=== PATIENT | male | born 1950 | race Caucasian/White ===

== ENCOUNTER 2021-04-21 12:57 | Emergency (ER) | payer SELFPAY ==
[~2021-04-21] VITALS: Ht 180.3 cm; Wt 81.0 kg
[2021-04-21] MEDS ORDERED: TETANUS, DIPHTHERIA, PERTUSSIS VAC/PF 0.5ML (>7YR OLD) IM ONE (14:45)
[2021-04-21] MEDS ORDERED: IBUPROFEN 600MG TABLET PO ONE (14:45)
[2021-04-21 14:46] VITALS: BP 165/94
[2021-04-21] MEDS ORDERED: CIPR-263 MT (14:46)
[2021-04-21] MEDS ORDERED: ACET650T37 MT (14:46)
== END 2021-04-21 14:57 | disposition home or self-care (01) ==
LOC: ER 13:03
DX: S91.331A Puncture wound without foreign body, right foot, initial encounter (principal); W50.0XXA Accidental hit or strike by another person, initial encounter; Y93.89 Activity, other specified; Y92.89 Other specified places as the place of occurrence of the external cause; Y99.8 Other external cause status
CPT/HCPCS: 90471; 90715; 99283